=== PATIENT | male | born 1970 | race Caucasian/White ===

== ENCOUNTER 2017-01-11 21:47 | Emergency (ER) | payer BC ==
[~2017-01-11] VITALS: Ht 177.8 cm; Wt 66.0 kg
[2017-01-11 22:52] VITALS: TEMP 37; Ht 177.8 cm; Wt 66.0 kg
[2017-01-11] MEDS ORDERED: SODIUM CHLORIDE 0.9% 1000ML 1,000 ML IV STA (23:57)
[2017-01-11] MEDS ORDERED: ONDANSETRON INJ 2 MG/ML 2 ML VIAL IV STA (23:57)
[2017-01-11] MEDS ORDERED: GI COCKTAIL PO STA (23:57)
[2017-01-12] MEDS ORDERED: FAMOTIDINE 20 MG TAB PO ONE
--- NOTE | 2017-01-12 00:03 | EMERGENCY ROOM VISIT NOTE ---
History Report prepared by Erika: Teja Kaminski Under the Supervision of: Dr. Yony Souza M.D. First contact with patient: 23:32 Chief Complaint: ILLNESS Stated Complaint: JAUNDICE,VALLADARES STOOL,DARK URINE,YELLOW EYES History of Present Illness The patient is a 46 year old white male with a past medical history of dental implants who presents to the ED with a cc of intermittent nausea beginning a couple of days ago. He rates his discomfort as a 2/10 in severity. He reports that starting a week ago he started to experience flu like symptoms including fevers and myalgia. He admits that his fever resolved, but noticed a dark color to his urine three days. The patient also noticed his feces became light yellow colored. He states that he noticed that every time he would eat, he would become nauseous. The patient also reports that he has been experiencing itchiness all over. He reports that he has two-three beers every night. The patient states that he has lost his "taste for drinking" six months ago. He states that he now gets intoxicated off of two beers, which is not normal. Positive chills, dark urine, yellow feces, myalgia. Negative tick exposure, autoimmune disorders, having same symptoms in the past, food exposure, drug use , recent transfusions. Source of History: patient Onset: couple of days ago Position: other (global) Symptom Intensity: 2/10 Timing: intermittent Modifying Factors (Worsening): eating Associated Symptoms: + fevers, + chills Review of Systems See HPI for pertinent positives and negatives. A total of ten systems were reviewed and were otherwise negative. Past Medical & Surgical Surgical Problems: (1) History of dental surgery Family History Patient reports no known family medical history. Social History Smoking Status: Former Smoker Alcohol Use: heavy Marital Status: Housing Status: lives with significant other Occupation Status: employed Current/Historical Medications Scheduled Famotidine (Pepcid), 1 TAB PO DAILY Ondasetron Odt (Zofran Odt), 4 MG SL Q6H Allergies Coded Allergies: No Known Allergies (Unverified , 01/12/17) Physical Exam Vital Signs Date Time Temp Pulse Resp B/P (MAP) Pulse Ox O2 Delivery O2 Flow Rate FiO2 01/12/17 02:30 68 17 101/66 99 01/12/17 01:35 67 18 110/71 96 Room Air 01/11/17 22:52 37.0 73 20 127/93 97 Room Air Physical Exam GENERAL: Awake, alert, well-appearing, NAD HENT: Normocephalic, atraumatic. EYES: Normal conjunctiva. Sclera icteric. NECK: Supple. No nuchal rigidity. FROM. RESPIRATORY: CTAB, no rhonchi, wheezing, crackles CARDIAC: RRR, no MRG ABDOMEN: Soft, NTND, BS+ Negative Obturator's, Psoa's, and Ko's. MSK: No chest wall TTP, no LE edema, No abdominal tenderness. No CVA tenderness. NEURO: GCS 15, CN 2-12 intact, moves all 4s on command SKIN: No rash or jaundice noted. Medical Decision & Procedures ER Provider Diagnostic Interpretation: US RUQ: Slightly dense prominent liver may be fatty, correlate with LFTs. Small gallstones and sludge. Gallbladder wall slightly thickened at 3.7 mm. Unable to assess Ko sign. Indeterminate for cholecystitis. No biliary obstruction. Pancreas unremarkable. Slightly prominent peripancreatic lymph nodes. Study read at 01:18 and initial results transmitted at 01:48 by Karyna Freire M.D. Laboratory Results 01/12/17 00:20 Red Blood Count 4.47, Mean Corpuscular Volume 89.5, Mean Corpuscular Hemoglobin 30.9, Mean Corpuscular Hemoglobin Concent 34.5, Mean Platelet Volume 10.4, Neutrophils (%) (Auto) 53.1, Lymphocytes (%) (Auto) 26.7, Monocytes (%) (Auto) 10.2, Eosinophils (%) (Auto) 9.0, Basophils (%) (Auto) 0.8, Neutrophils # (Auto ) 2.60, Lymphocytes # (Auto) 1.31, Monocytes # (Auto) 0.50, Eosinophils # (Auto ) 0.44, Basophils # (Auto) 0.04 01/12/17 00:20 Test 01/12/17 00:20 White Blood Count 4.90 K/uL (4.8-10.8) Red Blood Count 4.47 M/uL (4.7-6.1) Hemoglobin 13.8 g/dL (14.0-18.0) Hematocrit 40.0 % (42-52) Mean Corpuscular Volume 89.5 fL (80-100) Mean Corpuscular Hemoglobin 30.9 pg (25-34) Mean Corpuscular Hemoglobin Concent 34.5 g/dl (32-36) Platelet Count 189 K/uL (130-400) Mean Platelet Volume 10.4 fL (7.4-10.4) Neutrophils (%) (Auto) 53.1 % Lymphocytes (%) (Auto) 26.7 % Monocytes (%) (Auto) 10.2 % Eosinophils (%) (Auto) 9.0 % Basophils (%) (Auto) 0.8 % Neutrophils # (Auto) 2.60 K/uL (1.4-6.5) Lymphocytes # (Auto) 1.31 K/uL (1.2-3.4) Monocytes # (Auto) 0.50 K/uL (0.11-0.59) Eosinophils # (Auto) 0.44 K/uL (0-0.5) Basophils # (Auto) 0.04 K/uL (0-0.2) RDW Standard Deviation 40.5 fL (36.4-46.3) RDW Coefficient of Variation 12.5 % (11.5-14.5) Immature Granulocyte % (Auto) 0.2 % Immature Granulocyte # (Auto) 0.01 K/uL (0.00-0.02) Prothrombin Time 10.0 SECONDS (9.0-12.0) Prothromb Time International Ratio 0.9 (0.9-1.1) Activated Partial Thromboplast Time 27.9 SECONDS (21.0-31.0) Partial Thromboplastin Ratio 1.1 Anion Gap 7.0 mmol/L (3-11) Est Creatinine Clear Calc Drug Dose 122.2 ml/min Estimated GFR () 131.5 Estimated GFR (Non- 113.5 BUN/Creatinine Ratio 17.9 (10-20) Calcium Level 8.5 mg/dl (8.5-10.1) Total Bilirubin 6.5 mg/dl (0.2-1) Direct Bilirubin 4.9 mg/dl (0-0.2) Aspartate Amino Transf (AST/SGOT) 124 U/L (15-37) Alanine Aminotransferase (ALT/SGPT) 132 U/L (12-78) Alkaline Phosphatase 171 U/L (45-117) Total Protein 7.4 gm/dl (6.4-8.2) Albumin 3.5 gm/dl (3.4-5.0) Lipase 139 U/L (73-393) Laboratory results reviewed by me Medications Administered Medications (Trade) Dose Ordered Sig/Anjali Route Start Time Stop Time Status Last Admin Dose Admin Sodium Chloride 1,000 ml @ 999 mls/hr Q1H1M STAT IV 01/11/17 23:57 01/12/17 00:57 DC 01/12/17 00:25 999 MLS/HR Ondansetron HCl (Zofran Inj) 4 mg NOW STAT IV 01/11/17 23:57 01/12/17 00:01 DC 01/12/17 00:22 4 MG Famotidine (Pepcid Tab) 20 mg NOW ONCE PO 01/12/17 00:00 01/12/17 00:02 DC 01/12/17 00:25 20 MG Al Hydroxide/Mg Hydroxide (Maalox Susp) 30 ml STK-MED ONCE .ROUTE 01/12/17 00:17 01/12/17 00:18 DC 01/12/17 00:22 30 ML Lidocaine HCl (Viscous Lidocaine 2% Soln) 20 ml STK-MED ONCE .ROUTE 01/12/17 00:17 01/12/17 00:18 DC 01/12/17 00:22 20 ML ED Course 2348: The patient was evaluated in room A02. A complete history and physical exam was performed. 0131: I reevaluated the patient and he is resting comfortably. I updated him on his results and treatment plan. He agrees to follow up with outpatient care. Medical Decision The differential diagnosis includes etiologies such as appendicitis, diverticulitis, PUD, biliary pathology, UTI, pancreatitis, obstruction, mesenteric ischemia, aortic pathology, infections, inflammatory bowel disease, renal colic, as well as others were entertained. Patient was seen and evaluated the bedside. Patient was noted to have mild jaundice and scleral icterus. Patient was evaluated with additional blood work and a right upper quadrant ultrasound. Patient's blood work patient had a normal white blood cell count. Patient's coags were within normal limits. Patient did have mild elevations in his LFTs. Patient also detailed elevations in his total bilirubin. Patient was informed of these findings. Patient did have a rather quadrant ultrasound showed possible fatty liver. Patient was noted to have a mild gallbladder wall thickening at 3.7 mm just above the high end of normal. Patient did have small gallstones and sludge and the ultrasound was read as indeterminate for cholecystitis. Patient did not have any focal right upper quadrant tenderness and had a negative Ko sign. Patient was able tolerate by mouth. I did speak with the general surgeon precision instrument maker and repairer who agreed with an outpatient plan of care given the patient's well-appearing nature no dilatation of the CBD patient's negative Ko sign patient's normal white count lack of fever and well-appearing appearance. I explained the results to the patient who agreed with conservative conservative plan of care. Patient was told to continue supportive care and to keep his PCP appointment and he was also referred to gastroenterology but may also obtain an appointment through his PCP. Patient was told to avoid alcohol and Tylenol as this may worsen his liver function. Patient was given strict follow-up, discharge, and return precautions. Patient agreed care was safely discharged home. Medication Reconcilliation Current Medication List: was personally reviewed by me Blood Pressure Screening Patient's blood pressure: Normal blood pressure Impression Primary Impression: Gallstone Additional Impression: Hyperbilirubinemia Scribe Attestation The scribe's documentation has been prepared under my direction and personally reviewed by me in its entirety. I confirm that the note above accurately reflects all work, treatment, procedures, and medical decision making performed by me. Departure Information Dispostion Home / Self-Care Prescriptions Famotidine (PEPCID) 40 Mg Tab 1 TAB PO DAILY for 30 Days, #30 TAB 3 Refills Prov: Yony Souza M.D. 01/12/17 Ondasetron Odt (ZOFRAN ODT) 4 Mg Tab 4 MG SL Q6H for Nausea, #6 TAB Prov: Yony Souza M.D. 01/12/17 Referrals Christian Marx III, M.D. (PCP) Junior Tineo D.O. Patient Instructions Gallstones Dc, My [facility], Total Bilirubin Blood Additional Instructions Please return to the emergency department if you have worsening or recurrent symptoms not amenable to at-home treatment. Please call for a follow-up appointment with her primary care physician. Please take your medications as prescribed. If you have other concerns and/or complaints please feel free to also call your primary care physician's office or return the ED for further evaluation, management, and treatment. Avoid tylenol and alcohol as it may worsen your liver function. Please keep your follow up appointment w/ your PCP and call a powder shoveler for follow up. If you have severe RUQ or are unable to take by mouth medications, food, liquids even with at home treatment, please call your PCP or return to the ER for evaluation. Consider smaller meals and avoid fatty/fried foods. You have been examined and treated today on an emergency basis only. This is not a substitute for, or an effort to provide, complete comprehensive medical care. It is impossible to recognize and treat all injuries or illnesses in a single emergency department visit. It is therefore important that you follow up closely with [facility]. Call as soon as possible for an appointment. Thank you for your time and consideration. I look forward to speaking with you again soon. Please don't hesitate to call us if you have any questions. Problem Qualifiers Primary Impression: Gallstone Cholecystitis presence: without cholecystitis Biliary obstruction: without biliary obstruction Qualified Codes: K80.20 - Calculus of gallbladder without cholecystitis without obstruction
[2017-01-12] MEDS ORDERED: LIDOCAINE HCL 2% VISC SOLN 20 ML UDC ONE (00:17)
[2017-01-12] MEDS ORDERED: ALUMINUM/MAGNESIUM SUSP 30 ML UDC ONE (00:17)
[2017-01-12 00:31] LABS: BASO % 0.8 %; BASO ABS # 0.04 K/uL (0-0.2); COMPLETE YES; IG% 0.2 %; LYMPH % 26.7 %; LYMPH ABS # 1.31 K/uL (1.2-3.4); MEAN CELL VOLUME 89.5 fL (80-100); MEAN CORPUSCULAR HEMOGLOBIN 30.9 pg (25-34); MEAN CORPUSCULAR HGB CONC 34.5 g/dl (32-36); MEAN PLATELET VOLUME 10.4 fL (7.4-10.4); MONO % 10.2 %; NEUT % 53.1 %; PLATELET COUNT 189 K/uL (130-400); RED BLOOD COUNT 4.47 M/uL (4.7-6.1)
[2017-01-12 00:43] LABS: INR 0.9 (0.9-1.1); PARTIAL THROMBOPLASTIN RATIO 1.1
[2017-01-12] MEDS ORDERED: ASPIRIN 324 MG CHEW PO STA (00:46)
[2017-01-12 00:50] LABS: BUN/CREATININE RATIO 17.9 (10-20); CALCIUM 8.5 mg/dl (8.5-10.1); CREATININE 0.72 mg/dl (0.60-1.40); POTASSIUM 3.4 mmol/L (3.5-5.1)
[2017-01-12] MEDS ORDERED: ONDA4TAB10 SL (02:12)
[2017-01-12] MEDS ORDERED: FAMO40TA6 PO (02:12)
[2017-01-12 02:30] VITALS: BP 101/66; PULSE 68; O2SAT 99
--- NOTE | 2017-01-12 06:42 | DIAGNOSTIC IMAGING REPORT ---
ABDOMINAL ULTRASOUND, RIGHT UPPER QUADRANT HISTORY: Jaundice. COMPARISON: None. FINDINGS: Liver morphology is normal. No hepatic lesions are identified in no biliary ductal dilatation. The common bile duct measures 4 mm in caliber. There is sludge and small stones within the gallbladder. Mild gallbladder wall thickening is noted. There was no pericholecystic fluid. Pain medication was given and therefore an accurate sonographic Ko's sign could not be obtained. The pancreatic body was normal. Slightly prominent peripancreatic lymph nodes are noted. None are pathologically enlarged. There is no right hydronephrosis. A 1.1 cm right renal cyst is present. IMPRESSION: 1. No biliary ductal dilatation. Normal liver morphology by sonography. 2. Gallstones and sludge within the gallbladder. Mild gallbladder wall thickening. Sonographic Ko sign could not be assessed for in this patient. Electronically signed by: Hieu Vieira M.D. 01/12/2017 6:41 AM Dictated Date/Time: 01/12/2017 6:38 AM
== END 2017-01-12 02:33 | disposition home or self-care (01) ==
LOC: C.EDB 21:50 → C.EDA 01-12 02:33
DX: K80.20 Calculus of gallbladder without cholecystitis without obstruction (principal); E80.6 Other disorders of bilirubin metabolism; R50.9 Fever, unspecified; M79.1 Myalgia; Z79.899 Other long term (current) drug therapy; Z87.891 Personal history of nicotine dependence

== ENCOUNTER 2017-01-15 09:33 | Inpatient (IN) | payer BC ==
[~2017-01-15] VITALS: Ht 175.3 cm; Wt 65.2 kg
[~2017-01-15 09:33] MED LIST: FAMO40TA6 PO; ONDA4TAB10 SL
[2017-01-15 10:42] LABS: BASO ABS # 0.09 K/uL (0-0.2); COMPLETE YES; HEMATOCRIT 43.8 % (42-52); IG% 0.2 %; LYMPH % 28.9 %; LYMPH ABS # 1.32 K/uL (1.2-3.4); MEAN CELL VOLUME 91.1 fL (80-100); MEAN CORPUSCULAR HEMOGLOBIN 31.8 pg (25-34); MEAN CORPUSCULAR HGB CONC 34.9 g/dl (32-36); MONO % 8.1 %; NEUT % 48.8 %; PLATELET COUNT 269 K/uL (130-400); RED BLOOD COUNT 4.81 M/uL (4.7-6.1); WHITE BLOOD COUNT 4.57 K/uL (4.8-10.8)
[2017-01-15] MEDS ORDERED: OPTIRAY 320 IV PRN (10:45)
[2017-01-15 10:50] LABS: URINE APPEARANCE CLEAR (CLEAR); URINE COLOR DK YELLOW; URINE EPITHELIAL CELL AUTO 0-5 /lpf (0-5); URINE NITRITE POS (NEG); URINE SPECIFIC GRAVITY 1.016 (1.000-1.030); UROBILINOGEN NEG (NEG); ZZUR CULT IF INDIC CLEAN CATCH NO
[2017-01-15 10:52] LABS: MANUAL MICROSCOPIC REQUIRED? NO; REVIEW REQ? NO; URINE BILIRUBIN 3+ (NEG)
[2017-01-15 11:15] LABS: BUN/CREATININE RATIO 10.3 (10-20); CALCIUM 8.8 mg/dl (8.5-10.1); CREATININE 0.67 mg/dl (0.60-1.40); POTASSIUM 3.7 mmol/L (3.5-5.1)
--- NOTE | 2017-01-15 13:04 | DIAGNOSTIC IMAGING REPORT ---
ABD/PELVIS IV AND ORAL CONT CLINICAL HISTORY: 46 years-old Male presenting with Jaundice, worsening. Prior US with gallstones.. TECHNIQUE: Multidetector CT of the abdomen and pelvis was performed after the administration of oral and intravenous contrast. IV contrast: 93 mL of Optiray 320. A dose lowering technique was used consistent with the principles of ALARA (as low as reasonably achievable). COMPARISON: None. CT DOSE (mGy.cm): The estimated cumulative dose is 326.53 mGycm. FINDINGS: Log Deckman topogram: Unremarkable. Lung bases: Lung bases clear. Normal heart size. No pericardial or pleural effusion. Liver: Normal morphology. No liver lesion. Patent hepatic vasculature. Biliary: No intrahepatic or extrahepatic biliary ductal dilatation. Contracted gallbladder. Pancreas: Normal. Spleen: Normal. Adrenal glands: Normal. Kidneys and ureters: Well-defined hypodensity in the right kidney likely simple cyst. No nephrolithiasis. No hydronephrosis. Bladder: Normal. Pelvic organs: Prostate and seminal vesicles normal. Bowel: Normal. No bowel obstruction. Peritoneal cavity: No free fluid or intraperitoneal gas. Vasculature: Aorta and IVC patent and normal in caliber. Lymph nodes: No enlarged lymph nodes in the abdomen or pelvis. Abdominal wall: Normal. Musculoskeletal: Normal. IMPRESSION: 1. No acute intra-abdominal pathology. 2. Contracted gallbladder. No findings to suggest cholecystitis. No biliary ductal dilatation. Electronically signed by: Dominick John M.D. 01/15/2017 1:02 PM Dictated Date/Time: 01/15/2017 12:57 PM
[2017-01-15] MEDS ORDERED: SODIUM CHLORIDE 0.9% 1000ML 1,000 ML IV STA (13:31)
[2017-01-15] MEDS ORDERED: SODIUM CHLORIDE 0.9% 500ML 500 ML IV STA (13:31)
[2017-01-15] MEDS ORDERED: SODIUM CHLORIDE 0.9% 1000ML 1,000 ML IV SCH (14:30)
[2017-01-15] MEDS ORDERED: ONDANSETRON INJ 2 MG/ML 2 ML VIAL IV PRN (14:30)
--- NOTE | 2017-01-15 14:39 | History and Physical ---
History & Physical Date & Time of Service: Jan 15, 2017 at 14:33 Chief Complaint: Jaundice Primary Care Physician: Christian Marx III, M.D. History of Present Illness This is a 46yo M with no PMH who presents with jaundice and malaise x 2 weeks. Patient was in normal state of health until Jan 07, when he started to experience fever, chills, malaise, myalgia. A few days later, patient started to experience itchy skin, nausea and darkened, brown urine. Then noticed that bowel movements were chalk colored and pale. By the , patient noticed jaundice and presented to the ER for further evaluation. Was found to have hyperbilirubinemia, transaminitis and gallstone sludge on RUQ ultrasound, no cholecystitis or ductal dilation. Was advised to eat a low fat diet, abstain from alcohol and tylenol and follow-up with PCP. Saw Dr. Marx at the end of last week for repeat lab work. Malaise, nausea, dark urine and jaundice persisted throughout the weekend, despite patient changing to a low fat diet and abstaining from alcohol. Once patient viewed Epic lab work from PCP and saw that values had not improved, he came to ER for further evaluation. Of note, patient endorses drinking 2-3 beers a day for the last 20 years. Denies binge drinking. Has not consumed any alcohol since last in the ER on . Today, patient endorses feeling fatigued, weak, nauseous, skin continues to itch. Still experiencing brown urine, yellowed stool and jaundice. Denies any lightheadedness, CP, palpitations, SOB, vomiting, abdominal pain, constipation, melena, hematochezia, LE swelling. Past Medical/Surgical History Surgical Problems: (1) History of dental surgery Status: Resolved Family History Patient reports no known family medical history. Social History Smoking Status: Never Smoker Alcohol Use: Endorses 2-3 beers/night. Drug Use: marijuana Marital Status: Occupational Status: employed Allergies Coded Allergies: No Known Allergies (Unverified , 01/15/17) Home Medications No Active Prescriptions or Reported Meds Review of Systems Ten systems reviewed and negative except as noted in the HPI. Physical Exam Vital Signs Date Time Temp Pulse Resp B/P (MAP) Pulse Ox O2 Delivery O2 Flow Rate FiO2 01/15/17 13:25 52 16 124/80 98 Room Air 9/25/17 11:45 50 16 101/79 97 Room Air 01/15/17 09:37 36.8 60 20 124/84 98 Room Air General Appearance: no apparent distress Head: normocephalic, atraumatic Eyes: PERRL, + abnormal sclerae exam (scleral icterus) ENT: hearing grossly normal Neck: supple, no adenopathy, thyroid normal, trachea midline Respiratory/Chest: chest non-tender, lungs clear, normal breath sounds, no respiratory distress, no accessory muscle use Cardiovascular: regular rate, rhythm, no murmur, normal peripheral pulses Abdomen/GI: normal bowel sounds, soft, no organomegaly, + tenderness (Mild TTP of RUQ. Negative Ko's. Not tender otherwise. ) Back: normal inspection Extremities/Musculoskelatal: normal inspection, no calf tenderness, normal capillary refill, no pedal edema Neurologic/Psych: no motor/sensory deficits, alert, normal mood/affect, oriented x 3 Skin: + jaundice Diagnostics Laboratory Results Results Past 24 Hours Test 01/15/17 10:10 01/15/17 14:23 Range/Units White Blood Count 4.57 4.8-10.8 K/uL Red Blood Count 4.81 4.7-6.1 M/uL Hemoglobin 15.3 14.0-18.0 g/dL Hematocrit 43.8 42-52 % Mean Corpuscular Volume 91.1 80-100 fL Mean Corpuscular Hemoglobin 31.8 25-34 pg Mean Corpuscular Hemoglobin Concent 34.9 32-36 g/dl Platelet Count 269 130-400 K/uL Mean Platelet Volume 11.0 7.4-10.4 fL Neutrophils (%) (Auto) 48.8 % Lymphocytes (%) (Auto) 28.9 % Monocytes (%) (Auto) 8.1 % Eosinophils (%) (Auto) 12.0 % Basophils (%) (Auto) 2.0 % Neutrophils # (Auto) 2.23 1.4-6.5 K/uL Lymphocytes # (Auto) 1.32 1.2-3.4 K/uL Monocytes # (Auto) 0.37 0.11-0.59 K/uL Eosinophils # (Auto) 0.55 0-0.5 K/uL Basophils # (Auto) 0.09 0-0.2 K/uL RDW Standard Deviation 42.7 36.4-46.3 fL RDW Coefficient of Variation 12.7 11.5-14.5 % Immature Granulocyte % (Auto) 0.2 % Immature Granulocyte # (Auto) 0.01 0.00-0.02 K/uL Urine Color DK YELLOW Urine Appearance CLEAR CLEAR Urine pH 6.0 4.5-7.5 Urine Specific [place] 1.016 1.000-1.030 Urine Protein NEG NEG Urine Glucose (UA) NEG NEG Urine Ketones NEG NEG Urine Occult Blood NEG NEG Urine Nitrite POS NEG Urine Bilirubin 3+ NEG Urine Urobilinogen NEG NEG Urine Leukocyte Esterase TRACE NEG Urine WBC (Auto) 0 0-5 /hpf Urine RBC (Auto) 0-4 0-4 /hpf Urine Hyaline Casts (Auto) 1-5 0-5 /lpf Urine Epithelial Cells (Auto) 0-5 0-5 /lpf Urine Bacteria (Auto) NEG NEG Sodium Level 140 136-145 mmol/L Potassium Level 3.7 3.5-5.1 mmol/L Chloride Level 106 98-107 mmol/L Carbon Dioxide Level 30 21-32 mmol/L Anion Gap 4.0 3-11 mmol/L Blood Urea Nitrogen 7 7-18 mg/dl Creatinine 0.67 0.60-1.40 mg/dl Est Creatinine Clear Calc Drug Dose 129.8 ml/min Estimated GFR () 135.4 Estimated GFR (Non- 116.9 BUN/Creatinine Ratio 10.3 10-20 Random Glucose 99 70-99 mg/dl Calcium Level 8.8 8.5-10.1 mg/dl Total Bilirubin 7.2 0.2-1 mg/dl Direct Bilirubin 5.3 0-0.2 mg/dl Aspartate Amino Transf (AST/SGOT) 142 15-37 U/L Alanine Aminotransferase (ALT/SGPT) 179 12-78 U/L Alkaline Phosphatase 153 45-117 U/L Total Protein 7.3 6.4-8.2 gm/dl Albumin 3.6 3.4-5.0 gm/dl Lipase 121 73-393 U/L Diagnostic Radiology CT abd/pelvis: IMPRESSION: 1. No acute intra-abdominal pathology. 2. Contracted gallbladder. No findings to suggest cholecystitis. No biliary ductal dilatation. MRCP: IMPRESSION: Negative study. Contracted gallbladder with several gallstones which have has been described previously. Normal MRCP. No evidence for choledocholithiasis Impression Assessment and Plan This is a 46yo M with no PMH who presents with jaundice and malaise x 2 weeks. Patient was in normal state of health until Jan 07, when he started to experience fever, chills, malaise, myalgia. Painless jaundice: -Afebrile, no leukocytosis -Tbili of 7.2, AST of 142, ALT of 179, Alk phos of 153 -RUQ ultrasound from 01/11 showing gallstone sludge -CT abd/pelvis with no acute pathology No findings to suggest cholecystitis No biliary duct dilatation -Results for MRCP: negative for choledocholithiasis -Out-patient acute hepatitis and HIV negative -Per GI recommendations: -Keep NPO for EUS eval tomorrow with potential ERCP -If no CBD stone, may need liver biopsy if LFTs are not improving -Obtain EBV, CMV, Parvo, flu serology, urine tox, APAP level -IVF, CMP in AM DVT Ppx: Quincy valrosa Code status: FULL PCP: Araseli Dispo: Plan to return home once medically stable ATTENDING NOTE : pt seen and examined, in agreement with above H&P by Kylie Champion PA-C labs and images reviewed 46 yo male presented with hx of 2 weeks or malaise , found to have elevated LFT 's -hyperbilirubinemia /elevated direct bilirubin suggestive of obstructive jaundice images ; CT abdomen /USG /MRCP negative for -biliary stone hepatitis panel . lyme titer , serology sent for possible viral vs autoimmune hepatitis GI eval requested for further recommendation Jeanna Kwan MD Level of Care Med/Surg Resuscitation Status FULL RESUSCITATION VTE Prophylaxis VTE Risk Assessment Done? Y/N: Yes Risk Level: Low Given or contraindicated: Karan Ellington Additional Copies To Christian Marx III, M.D.
[2017-01-15 14:40] VITALS: BP 114/91; PULSE 55; TEMP 36.8; O2SAT 97; Ht 175.3 cm; Wt 65.2 kg
[2017-01-15] MEDS ORDERED: PROMETHAZINE HCL INJ 12.5 MG in SODIUM CHLORIDE 0.9% 50ML 50 ML IV PRN (14:45)
--- NOTE | 2017-01-15 15:07 | EMERGENCY ROOM VISIT NOTE ---
History Report prepared by Erika: Estefanía Martinez Under the Supervision of: Dr. Christian Desai M.D. First contact with patient: 09:44 Chief Complaint: OTHER COMPLAINT Stated Complaint: JAUNDICE History of Present Illness The patient is a 46 year old male who presents to the Emergency Room with complaints of persistent jaundiced skin that began four days ago. The patient states that from the 05 of January to the he experienced flu like symptoms. He states that he then became itchy and notes that his skin is irritated.. The patient states that on the 08 of January he noticed a change in his urine and bowel movements, noting that his urine was much darker and his stool was diarrhea in consistency. He states that he additionally began feeling nauseous with eating. The patient states that he was evaluated in the emergency department on January 11 and was instructed to follow up with his PCP. He states that he feels his symptoms are worsening. The patient states that on the his eyes became jaundiced and states that on the his skin became jaundiced. He states that last he stopped eating fatty foods, noting that it had alleviated his diarrhea and additionally notes that he is experiencing less abdominal cramps. The patient states that his appetite is weak. He additionally reports generalized malaise and weakness. The patient denies any active medical problems or previous surgeries. He reports a weakened urinary stream and states that he has had difficulty urinating. The patient reports a weight loss of 10 pounds in the past week. Pt denies LOC, headache, fevers, chills, diaphoresis, visual changes, neck pain , chest pain, breathing difficulties, vomiting, abdominal pain, back pain, melena, hematochezia, urinary symptoms, numbness, lymphadenopathy, rash, or other complaints. Per records from the patient's most recent lab work his AST was 133, Alk-phos was 159, total bilirubin was 7.7, and his ALT was 142. Source of History: patient Onset: four days ago Position: other (skin) Quality: other (jaundiced) Timing: other (persistent) Associated Symptoms: + nausea, + diarrhea, + urinary symptoms, + weakness Note: Associated Symptoms: 10 pound weight loss. Review of Systems See HPI for pertinent positives and negatives. A total of ten systems were reviewed and were otherwise negative. Past Medical & Surgical Medical Problems: (1) Hyperbilirubinemia (2) Jaundice Surgical Problems: (1) History of dental surgery Family History Patient reports no known family medical history. Social History Smoking Status: Never Smoker Alcohol Use: heavy Marital Status: Housing Status: lives with significant other Occupation Status: employed Current/Historical Medications No Active Prescriptions or Reported Meds Allergies Coded Allergies: No Known Allergies (Unverified , 01/15/17) Physical Exam Vital Signs Date Time Temp Pulse Resp B/P (MAP) Pulse Ox O2 Delivery O2 Flow Rate FiO2 01/15/17 15:04 58 18 113/68 98 Room Air 01/15/17 14:40 36.8 55 16 114/91 97 Room Air 01/15/17 13:25 52 16 124/80 98 Room Air 01/15/17 11:45 50 16 101/79 97 Room Air 01/15/17 09:37 36.8 60 20 124/84 98 Room Air Physical Exam GENERAL: Awake, alert, well-appearing, in no distress HENT: Normocephalic, atraumatic. Oropharynx unremarkable. EYES: Normal conjunctiva. Sclera are icteric. NECK: Supple. No nuchal rigidity. FROM. No JVD. RESPIRATORY: Clear to auscultation. CARDIAC: Regular rate, normal rhythm. Extremities warm and well perfused. Pulses equal. ABDOMEN: Soft, non-distended. Slight pain in the right upper quadrant to palpation. No rebound or guarding. No masses. RECTAL: Deferred. MUSCULOSKELETAL: Chest examination reveals no tenderness. The back is symmetrical on inspection without obvious abnormality. There is no CVA tenderness to palpation. No joint edema. LOWER EXTREMITIES: Calves are equal size bilaterally and non-tender. No edema. No discoloration. NEURO: Normal sensorium. No sensory or motor deficits noted. SKIN: Jaundiced noted No rash. Medical Decision & Procedures ER Provider Diagnostic Interpretation: Radiology results as stated below per my review and radiologist interpretation: ABD/PELVIS IV AND ORAL CONT CLINICAL HISTORY: 46 years-old Male presenting with Jaundice, worsening. Prior US with gallstones.. TECHNIQUE: Multidetector CT of the abdomen and pelvis was performed after the administration of oral and intravenous contrast. IV contrast: 93 mL of Optiray 320. A dose lowering technique was used consistent with the principles of ALARA (as low as reasonably achievable). COMPARISON: None. CT DOSE (mGy.cm): The estimated cumulative dose is 326.53 mGycm. FINDINGS: Activities Director Scouting topogram: Unremarkable. Lung bases: Lung bases clear. Normal heart size. No pericardial or pleural effusion. Liver: Normal morphology. No liver lesion. Patent hepatic vasculature. Biliary: No intrahepatic or extrahepatic biliary ductal dilatation. Contracted gallbladder. Pancreas: Normal. Spleen: Normal. Adrenal glands: Normal. Kidneys and ureters: Well-defined hypodensity in the right kidney likely simple cyst. No nephrolithiasis. No hydronephrosis. Bladder: Normal. Pelvic organs: Prostate and seminal vesicles normal. Bowel: Normal. No bowel obstruction. Peritoneal cavity: No free fluid or intraperitoneal gas. Vasculature: Aorta and IVC patent and normal in caliber. Lymph nodes: No enlarged lymph nodes in the abdomen or pelvis. Abdominal wall: Normal. Musculoskeletal: Normal. IMPRESSION: 1. No acute intra-abdominal pathology. 2. Contracted gallbladder. No findings to suggest cholecystitis. No biliary ductal dilatation. Electronically signed by: Dominick John M.D. 01/15/2017 1:02 PM Dictated Date/Time: 01/15/2017 12:57 PM Laboratory Results 01/15/17 10:10 Red Blood Count 4.81, Mean Corpuscular Volume 91.1, Mean Corpuscular Hemoglobin 31.8, Mean Corpuscular Hemoglobin Concent 34.9, Mean Platelet Volume 11.0, Neutrophils (%) (Auto) 48.8, Lymphocytes (%) (Auto) 28.9, Monocytes (%) (Auto) 8.1, Eosinophils (%) (Auto) 12.0, Basophils (%) (Auto) 2.0, Neutrophils # (Auto ) 2.23, Lymphocytes # (Auto) 1.32, Monocytes # (Auto) 0.37, Eosinophils # (Auto ) 0.55, Basophils # (Auto) 0.09 01/15/17 10:10 Test 01/15/17 10:10 01/15/17 14:23 01/15/17 14:35 White Blood Count 4.57 K/uL (4.8-10.8) Red Blood Count 4.81 M/uL (4.7-6.1) Hemoglobin 15.3 g/dL (14.0-18.0) Hematocrit 43.8 % (42-52) Mean Corpuscular Volume 91.1 fL (80-100) Mean Corpuscular Hemoglobin 31.8 pg (25-34) Mean Corpuscular Hemoglobin Concent 34.9 g/dl (32-36) Platelet Count 269 K/uL (130-400) Mean Platelet Volume 11.0 fL (7.4-10.4) Neutrophils (%) (Auto) 48.8 % Lymphocytes (%) (Auto) 28.9 % Monocytes (%) (Auto) 8.1 % Eosinophils (%) (Auto) 12.0 % Basophils (%) (Auto) 2.0 % Neutrophils # (Auto) 2.23 K/uL (1.4-6.5) Lymphocytes # (Auto) 1.32 K/uL (1.2-3.4) Monocytes # (Auto) 0.37 K/uL (0.11-0.59) Eosinophils # (Auto) 0.55 K/uL (0-0.5) Basophils # (Auto) 0.09 K/uL (0-0.2) RDW Standard Deviation 42.7 fL (36.4-46.3) RDW Coefficient of Variation 12.7 % (11.5-14.5) Immature Granulocyte % (Auto) 0.2 % Immature Granulocyte # (Auto) 0.01 K/uL (0.00-0.02) Urine Color DK YELLOW Urine Appearance CLEAR (CLEAR) Urine pH 6.0 (4.5-7.5) Urine Specific [place] 1.016 (1.000-1.030) Urine Protein NEG (NEG) Urine Glucose (UA) NEG (NEG) Urine Ketones NEG (NEG) Urine Occult Blood NEG (NEG) Urine Nitrite POS (NEG) Urine Bilirubin 3+ (NEG) Urine Urobilinogen NEG (NEG) Urine Leukocyte Esterase TRACE (NEG) Urine WBC (Auto) 0 /hpf (0-5) Urine RBC (Auto) 0-4 /hpf (0-4) Urine Hyaline Casts (Auto) 1-5 /lpf (0-5) Urine Epithelial Cells (Auto) 0-5 /lpf (0-5) Urine Bacteria (Auto) NEG (NEG) Anion Gap 4.0 mmol/L (3-11) Est Creatinine Clear Calc Drug Dose 129.8 ml/min Estimated GFR () 135.4 Estimated GFR (Non- 116.9 BUN/Creatinine Ratio 10.3 (10-20) Calcium Level 8.8 mg/dl (8.5-10.1) Total Bilirubin 7.2 mg/dl (0.2-1) Direct Bilirubin 5.3 mg/dl (0-0.2) Aspartate Amino Transf (AST/SGOT) 142 U/L (15-37) Alanine Aminotransferase (ALT/SGPT) 179 U/L (12-78) Alkaline Phosphatase 153 U/L (45-117) Total Protein 7.3 gm/dl (6.4-8.2) Albumin 3.6 gm/dl (3.4-5.0) Lipase 121 U/L (73-393) Laboratory results reviewed by me Medications Administered Medications (Trade) Dose Ordered Sig/Anjali Route Start Time Stop Time Status Last Admin Dose Admin Sodium Chloride 1,000 ml @ 125 mls/hr Q8H STAT IV 01/15/17 13:31 01/15/17 21:30 01/15/17 13:40 125 MLS/HR Sodium Chloride 500 ml @ 999 mls/hr Q31M STAT IV 01/15/17 13:31 01/15/17 14:01 DC 01/15/17 13:40 999 MLS/HR ED Course 0948: The patient was evaluated in room B3B. A complete history and physical exam was performed by the medical student. 1015: The patient was evaluated in room B3B. A complete history and physical exam was performed. 1126: I reevaluated the patient and he is stable. 1327: I discussed the patients case with [facility]. She states that the patient should be worked up as an inpatient 1331: I reevaluated the patient and he is resting comfortably. I discussed all the exam findings with him and I discussed the treatment plan. He verbalized complete understanding and agreement. He is going to be evaluated for further treatment. Ordered Sodium Chloride 500 ml @ 999 mls/hr IV, Sodium Chloride 1000 ml @ 125 mls/hr IV. 1340: I discussed the patients case with Azeb Whittington PA-C. She is going to evaluate the patient for further treatment. Medical Decision Triage Nursing notes reviewed. The patient's presentation and history were concerning for jaundice. Etiologies such as biliary pathology, pancreatitis, malignancy, obstruction, appendicitis, diverticulitis, inflammatory bowel disease, PUD, mesenteric ischemia, infections, genitourinary, UTI, as well as others were entertained. The patient was evaluated. Clinically he was doing well. He is jaundiced. He did have some minimal right upper quadrant tenderness. Blood work was obtained. CT scan was performed. Results as above. The patient has increasing LFTs and is more jaundiced. CT scan did not reveal the obvious pathology. Consultation was made with [facility]. The case was discussed. Admission was recommended for further workup and testing. Consultation was placed with the hospitalist service. The patient was evaluated in the Emergency Room for further management. The patient and were educated. They're very pleased with the treatment. The patient was admitted for further management. Medication Reconcilliation Current Medication List: was personally reviewed by me Blood Pressure Screening Patient's blood pressure: Normal blood pressure Blood pressure disposition: Did not require urgent referral Consults Time Called: 1324 Consulting Physician: Neelam Rodriguez Returned Call: 1327 I discussed the patients case with Neelam Rodriguez. She states that the patient should be worked up as an inpatient Additional Consults: Time Called: 1337 Consulted Physician: Azeb Whittington PA-C Returned Call: [phone] Additional Comments: I discussed the patients case with Azeb Whittington PA-C. She is going to evaluate the patient for further treatment. Impression Primary Impression: Jaundice Additional Impression: Elevated LFTs Scribe Attestation The scribe's documentation has been prepared under my direction and personally reviewed by me in its entirety. I confirm that the note above accurately reflects all work, treatment, procedures, and medical decision making performed by me. Departure Information Dispostion Being Evaluated By Hospitalist Prescriptions No Active Prescriptions or Reported Meds Referrals Christian Marx III, M.D. (PCP) Patient Instructions My [facility] Problem Qualifiers
--- NOTE | 2017-01-15 16:19 | DIAGNOSTIC IMAGING REPORT ---
MRCP CLINICAL HISTORY: obstructive jaundice r/o bile duct stone jaundice TECHNIQUE: MRI multi axial acquisition COMPARISON STUDY: CT abdomen and pelvis same date. Ultrasound same date. FINDINGS: Normal MRCP. No evidence for choledocholithiasis. No biliary or pancreatic ductal distention. Signal characteristics of the liver pancreas and spleen are uniform. Kidneys negative for hydronephrosis. There is a small right renal cyst. No significant adenopathy. Signal characteristics of the osseous structures are unremarkable. Note is again made of a contracted gallbladder with several gallstones. IMPRESSION: Negative study. Contracted gallbladder with several gallstones which have has been described previously. Normal MRCP. No evidence for choledocholithiasis The above report was generated using voice recognition software. It may contain grammatical, syntax or spelling errors. Electronically signed by: Thanh Gomez M.D. 01/15/2017 4:17 PM Dictated Date/Time: 01/15/2017 4:10 PM
[2017-01-15 16:20] VITALS: BP 111/77; PULSE 61; TEMP 36.6; O2SAT 96
[2017-01-15 16:51] LABS: INR 0.9 (0.9-1.1); PROTHROMBIN TIME (PATIENT) 9.8 SECONDS (9.0-12.0)
--- NOTE | 2017-01-15 17:02 | Gastrointestinal Consultation ---
Gastrointestinal Consultation Date of Consultation: Jan 15, 2017 Attending Physician: Jeanna Kwan Consulting Physician: Susan Ramos Reason for Consultation: Painless jaundice History of Present Illness Patient is a 46 year old male w who presented to ED for worsening jaundice. He notice having "flu like symptoms" of malaise mostly about 10 days ago. He had hx of tick bites but not recently, denies any rashes, fever, chills. Does have lots of pets and been outdoors a lot. No recent travels. Then <1 week ago started having indigestion, heartburn feeling post prandially. He cut down on fatty food intake and felt indigestion was better. He has associated pale colored stools and dark urine. He started to notice jaundice 2-3 days ago. Was in fact in ED on 01/11/17. At that time Tbili 6.5, transaminases and AP was in mid 100s. He had gallbladder u/s which showed no biliary dilatation, normal appearing liver. Though has gallstones and sludge. He also had outpt acute hepatitis, HIV testing done which were negative. He returned to ED today for worsening jaundice, itching. Labs showed increased Tbili of 7.7, still similar transaminases and AP in mid to high 100s. CT abd/pelvis today unremarkable, gallbladder contracted. He just had MRCP which showed gallstones but negative study otherwise. He currently denies any abd pain, n/v. He works at the [employer] for [employer]. Denies any significant medical hx, not on any Rx meds or herbal supplements. Drinks 2 beers daily since 22 yrs old, but 1 month ago can only tolerate 1 beer daily. He smokes marijuana 3x a week, denies any illicit drugs, tattoos, piercing, blood transfusions. Denies family hx of liver diseases, GI cancers. Past Medical/Surgical History Medical Problems: (1) Elevated LFTs Status: Acute (2) Gallstone Status: Acute (3) Hyperbilirubinemia Status: Acute Past Medical History: As above. Past Surgical History: Dental repair Family History Patient reports no known family medical history. Social History Smoking Status: Never Smoker Alcohol Use: occasionally (2 beers daily ) Drug Use: marijuana Marital Status: Housing Status: lives with significant other Occupation Status: employed Allergies Coded Allergies: No Known Allergies (Unverified , 01/15/17) Current Medications Home Meds and Scripts Medications Dose Route/Sig Max Daily Dose Days Date Category No Active Prescriptions or Reported Medications Rx Review of Systems Constitutional: + fatigue, No fever, No chills Respiratory: No cough, No shortness of breath Cardiac: No chest pain Abdomen: + acolic stools, + jaundice, + dark urine, No pain, No nausea, No vomiting Endo: + fatigue Skin: + itch, + jaundice, No rash Physical Exam Date Time Temp Pulse Resp B/P (MAP) Pulse Ox O2 Delivery O2 Flow Rate FiO2 01/15/17 16:20 36.6 61 18 111/77 (88) 96 Room Air 01/15/17 16:15 Room Air 01/15/17 15:04 58 18 113/68 98 Room Air 01/15/17 14:40 36.8 55 16 114/91 97 Room Air 01/15/17 13:25 52 16 124/80 98 Room Air 01/15/17 11:45 50 16 101/79 97 Room Air 01/15/17 09:37 36.8 60 20 124/84 98 Room Air General Appearance: WD/WN, no apparent distress Eyes: EOMI, + pertinent finding (icteric sclera) Neck: supple, no JVD, trachea midline Respiratory/Chest: normal breath sounds, no respiratory distress, no accessory muscle use Cardiovascular: regular rate, rhythm, no gallop, no murmur Abdomen: normal bowel sounds, non tender, soft Extremities: normal inspection, no pedal edema, no calf tenderness Neurologic/Psych: alert, normal mood/affect, oriented x 3 Skin: + jaundice Laboratory Results Last 24 Hours Test 01/15/17 10:10 01/15/17 16:34 White Blood Count 4.57 K/uL Red Blood Count 4.81 M/uL Hemoglobin 15.3 g/dL Hematocrit 43.8 % Mean Corpuscular Volume 91.1 fL Mean Corpuscular Hemoglobin 31.8 pg Mean Corpuscular Hemoglobin Concent 34.9 g/dl Platelet Count 269 K/uL Mean Platelet Volume 11.0 fL Neutrophils (%) (Auto) 48.8 % Lymphocytes (%) (Auto) 28.9 % Monocytes (%) (Auto) 8.1 % Eosinophils (%) (Auto) 12.0 % Basophils (%) (Auto) 2.0 % Neutrophils # (Auto) 2.23 K/uL Lymphocytes # (Auto) 1.32 K/uL Monocytes # (Auto) 0.37 K/uL Eosinophils # (Auto) 0.55 K/uL Basophils # (Auto) 0.09 K/uL RDW Standard Deviation 42.7 fL RDW Coefficient of Variation 12.7 % Immature Granulocyte % (Auto) 0.2 % Immature Granulocyte # (Auto) 0.01 K/uL Urine Color DK YELLOW Urine Appearance CLEAR Urine pH 6.0 Urine Specific [place] 1.016 Urine Protein NEG Urine Glucose (UA) NEG Urine Ketones NEG Urine Occult Blood NEG Urine Nitrite POS Urine Bilirubin 3+ Urine Urobilinogen NEG Urine Leukocyte Esterase TRACE Urine WBC (Auto) 0 /hpf Urine RBC (Auto) 0-4 /hpf Urine Hyaline Casts (Auto) 1-5 /lpf Urine Epithelial Cells (Auto) 0-5 /lpf Urine Bacteria (Auto) NEG Sodium Level 140 mmol/L Potassium Level 3.7 mmol/L Chloride Level 106 mmol/L Carbon Dioxide Level 30 mmol/L Anion Gap 4.0 mmol/L Blood Urea Nitrogen 7 mg/dl Creatinine 0.67 mg/dl Est Creatinine Clear Calc Drug Dose 129.8 ml/min Estimated GFR () 135.4 Estimated GFR (Non- 116.9 BUN/Creatinine Ratio 10.3 Random Glucose 99 mg/dl Calcium Level 8.8 mg/dl Total Bilirubin 7.2 mg/dl Direct Bilirubin 5.3 mg/dl Aspartate Amino Transf (AST/SGOT) 142 U/L Alanine Aminotransferase (ALT/SGPT) 179 U/L Alkaline Phosphatase 153 U/L Total Protein 7.3 gm/dl Albumin 3.6 gm/dl Lipase 121 U/L Impression Patient is a 46 year old male here w painless jaundice, pale colored stools, dark urine. Though previously had "flu like symptoms", malaise, and indigestion w fatty food intake. His imaging studies showed gallstones, but no biliary dilation, MRCP negative for CBD obstruction. Outpt acute hepatitis panel and HIV negative. DDx: CBD stones not seen on imaging studies, viral hepatitis, autoimmune liver disease, ? ETOH hepatitis though he admits only 1-2 beers daily. Plan - Keep NPO for EUS eval tomorrow 01/16, w potential ERCP if CBD stone found. If no CBD stone, he may need liver bx if LFTs not improving. - Obtain EBV, CMV, Parvo, Flu serologies. Urine toxicology. APAP level - Monitor LFTs.
[2017-01-15] MEDS: SODIUM CHLORIDE 0.9% 1000ML 1,000 ML IV SCH ×2 (17:49→22:26)
[2017-01-15 22:27] VITALS: BP 99/61; PULSE 54; TEMP 36.8; O2SAT 96
[2017-01-16] MEDS: SODIUM CHLORIDE 0.9% 1000ML 1,000 ML IV SCH ×3 (06:17→23:21)
[2017-01-16 06:52] LABS: HEMATOCRIT 41.2 % (42-52); MEAN CELL VOLUME 92.4 fL (80-100); MEAN CORPUSCULAR HEMOGLOBIN 30.9 pg (25-34); MEAN CORPUSCULAR HGB CONC 33.5 g/dl (32-36); MEAN PLATELET VOLUME 10.5 fL (7.4-10.4); PLATELET COUNT 243 K/uL (130-400); RED BLOOD COUNT 4.46 M/uL (4.7-6.1); WHITE BLOOD COUNT 5.08 K/uL (4.8-10.8)
[2017-01-16 06:58] VITALS: BP 125/77; PULSE 64; TEMP 36.7; O2SAT 98
[2017-01-16] MEDS ORDERED: INDOMETHACIN 50 MG SUPP PR SCH (07:00)
[2017-01-16 07:09] LABS: INR 0.9 (0.9-1.1)
[2017-01-16 07:37] LABS: ALB/GLOB RATIO 0.9 (0.9-2); BUN/CREATININE RATIO 11.4 (10-20); CALCIUM 8.5 mg/dl (8.5-10.1); CREATININE 0.69 mg/dl (0.60-1.40); MAGNESIUM 2.1 mg/dl (1.8-2.4); POTASSIUM 3.5 mmol/L (3.5-5.1)
[2017-01-16 08:02] LABS: LYME DISEASE AB IGM NEG (NEG)
[2017-01-16 08:03] LABS: LYME DISEASE AB IGG NEG (NEG)
[2017-01-16] MEDS: PANTOprazole INJ 40 MG in SYRINGE 0 ML IV SCH (10:36)
--- NOTE | 2017-01-16 10:45 | Progress Note ---
Progress Note Date of Service Jan 16, 2017. (Florinda Langley CRNP) Progress Note Pt is 46 y/o male admitted w painless jaundice, elevated LFTs. Though a couple of weeks prior to admission started w flu like symptoms, indigestion w fatty food intake, then light colored stools, dark urine. No acute events overnight, transaminases trending down, though Tbili increased from 7 to 8. He had been made NPO for EUS/ERCP today. If EUS negative for stones , may need liver bx. Labs, VS reviewed. Exam: AAOx3, in NAD CTA bilateral lung lobes HRR no murmur or gallops Abd soft, non TTP, BS hypoactive No edema on extremities. + jaundice noted. - Keep NPO for EUS/ERCP in OR by Dr. Susan Ramos today, GI will give further recs after procedure completed. (Florinda Langley CRNP) I saw and evaluated the patient. He has presented with a history of malise and liver enzyme elevation. EUS / ERCP requested by Dr. Lamas for further evaluation. PE: Scleral icterus noted\ Abd: soft, mild ruq tenderness Impression: patient with a history of malaise and significant LAE elevation. Further evaluation requested to determine if the etiology may be biliary. If the EUS is negative for CBD stones then EUS guided liver biopy will be offered. we have discussed the risks to include bleeding, infection, perforation, pancreatitis, and insufficient cellularity. Plan EUS (+/- liver biopsy) ERCP if EUS positive for a biliary stricture or stone disease. (Susan Ramos, DO)
[2017-01-16 15:30] VITALS: BP 121/74; PULSE 64; TEMP 36.9; O2SAT 96
--- NOTE | 2017-01-16 16:13 | Progress Note ---
Internal Med Progress Note Date of Service: Jan 16, 2017. Provider Documentation: SUBJECTIVE: Seen and examined at bedside States feeling better today Denies nausea, vomiting, abd pain, itching Planned for EUS and possible ERCP today Denies CP, SOB OBJECTIVE: Vital Signs-as noted below Physical Exam: General Appearance:Moderately built and nourished, no apparent distress Head: normocephalic, Atraumatic Eyes: normal inspection, EOMI, PERRLA, icteric Neck: supple, Trachea midline Respiratory/Chest: Normal breath sounds, CTA Cardiovascular: S1, S2, No murmur Abdomen/GI:Soft, Non tender, Bowel sounds present Extremities/Musculoskelatal:normal inspection, no edema Neurologic/Psych:AAOX3, grossly no focal neurological deficits Skin: normal color, warm Lab data as noted below. ASSESSMENT & PLAN: Patient is a 46yr male with no PMH who presents with jaundice and malaise x 2 weeks. Patient was in normal state of health until Jan 07, when he started to experience fever, chills, malaise, myalgia. Painless jaundice: Admit to drinking 1-2 beers daily Transaminitis RUQ ultrasound from 01/[address] abd/pelvis with no acute pathology MRCP: negative Out-patient acute hepatitis and HIV negative Serological work up, APAP, CMV, Tox screen pending Lyme, Flu negative Planned for EUS and possible ERCP today Appreciate GI help Continue IV fluids for now DVT Px: SCDs Code status: FULL CODE PCP: Araseli Dispo: Plan to return home once medically stable Vital Signs: Date Time Temp Pulse Resp B/P (MAP) Pulse Ox O2 Delivery O2 Flow Rate FiO2 01/16/17 15:30 36.9 64 18 121/74 (90) 96 Room Air 01/16/17 07:40 Room Air 01/16/17 06:58 36.7 64 18 125/77 (93) 98 Room Air 01/15/17 23:15 Room Air 01/15/17 22:27 36.8 54 18 99/61 (74) 96 Room Air Lab Results: Results Past 24 Hours Test 01/15/17 16:34 01/15/17 17:17 01/16/17 06:30 01/16/17 15:30 Range/Units Prothrombin Time 9.8 10.0 9.0-12.0 SECONDS Prothromb Time International Ratio 0.9 0.9 0.9-1.1 Acetaminophen Level 10-30 ug/ml White Blood Count 5.08 4.8-10.8 K/uL Red Blood Count 4.46 4.7-6.1 M/uL Hemoglobin 13.8 14.0-18.0 g/dL Hematocrit 41.2 42-52 % Mean Corpuscular Volume 92.4 80-100 fL Mean Corpuscular Hemoglobin 30.9 25-34 pg Mean Corpuscular Hemoglobin Concent 33.5 32-36 g/dl RDW Standard Deviation 42.9 36.4-46.3 fL RDW Coefficient of Variation 12.7 11.5-14.5 % Platelet Count 243 130-400 K/uL Mean Platelet Volume 10.5 7.4-10.4 fL Sodium Level 140 136-145 mmol/L Potassium Level 3.5 3.5-5.1 mmol/L Chloride Level 106 98-107 mmol/L Carbon Dioxide Level 24 21-32 mmol/L Anion Gap 10.0 3-11 mmol/L Blood Urea Nitrogen 8 7-18 mg/dl Creatinine 0.69 0.60-1.40 mg/dl Est Creatinine Clear Calc Drug Dose 126.0 ml/min Estimated GFR () 133.8 Estimated GFR (Non- 115.5 BUN/Creatinine Ratio 11.4 10-20 Random Glucose 83 70-99 mg/dl Calcium Level 8.5 8.5-10.1 mg/dl Magnesium Level 2.1 1.8-2.4 mg/dl Total Bilirubin 8.2 0.2-1 mg/dl Direct Bilirubin 6.0 0-0.2 mg/dl Aspartate Amino Transf (AST/SGOT) 118 15-37 U/L Alanine Aminotransferase (ALT/SGPT) 146 12-78 U/L Alkaline Phosphatase 138 45-117 U/L Total Protein 6.7 6.4-8.2 gm/dl Albumin 3.1 3.4-5.0 gm/dl Globulin 3.6 2.5-4.0 gm/dl Albumin/Globulin Ratio 0.9 0.9-2 Lyme Disease IgG Antibody NEG NEG Lyme Disease IgM Antibody NEG NEG
[2017-01-16] MEDS ORDERED: ROCURONIUM BROMIDE 10 MG/ML 5 ML VIAL IV ONE (16:45)
[2017-01-16] MEDS ORDERED: DEXAMETHASONE SOD INJ 4 MG/ML VIAL ONE (16:45)
[2017-01-16] MEDS ORDERED: LIDOCAINE HCL 2% 2 ML VIAL (20MG/ML) ONE (16:45)
[2017-01-16] MEDS ORDERED: ATROPINE SULFATE 0.1 MG/ML 5ML SYR IV PRN (16:45)
[2017-01-16] MEDS ORDERED: ONDANSETRON INJ 2 MG/ML 2 ML VIAL ONE (16:45)
[2017-01-16] MEDS ORDERED: EpHEDrine SULFATE INJ 50 MG/ML AMP IV PRN (16:45)
[2017-01-16] MEDS ORDERED: PROMETHAZINE HCL INJ 6.25 MG in SODIUM CHLORIDE 0.9% 50ML 50 ML IV PRN (16:45)
[2017-01-16] MEDS ORDERED: ONDANSETRON INJ 2 MG/ML 2 ML VIAL IV PRN (16:45)
[2017-01-16] MEDS ORDERED: PROPOFOL IV EMULSION 10 MG/ML 20 ML VIAL IV ONE (16:45)
[2017-01-16] MEDS ORDERED: MIDAZOLAM HCL 1 MG/ML 2ML VIAL ONE (16:45)
[2017-01-16] MEDS ORDERED: FENTANYL CITRATE INJ 50 MCG/1 ML 2 ML VIAL ONE (16:45)
[2017-01-16] MEDS ORDERED: NEOSTIGMINE METHYLSULFATE 5 MG/5 ML SYR ONE (17:10)
[2017-01-16] MEDS ORDERED: GLYCOPYRROLATE INJ 0.2 MG/ML VIAL ONE ×2 (17:10→17:22)
--- NOTE | 2017-01-16 17:38 | GI REPORT ---
Procedure Date: 01/16/2017 4:49 PM Procedure: Upper EUS Indications: Epigastric abdominal pain Medicines: General Anesthesia Complications: No immediate complications. Estimated blood loss: Minimal. Estimated Blood Loss: Estimated blood loss was minimal. Procedure: Pre-Anesthesia Assessment: - Prior to the procedure, a History and Physical was performed, and patient medications, allergies and sensitivities were reviewed. The patient's tolerance of previous anesthesia was reviewed. - The risks and benefits of the procedure and the sedation options and risks were discussed with the patient. All questions were answered and informed consent was obtained. - Patient identification and proposed procedure were verified prior to the procedure by the physician, the nurse and the transportation inspector. The procedure was verified in the procedure room. - The risks and benefits of the procedure and the sedation options and risks were discussed with the patient. All questions were answered and informed consent was obtained. - Patient identification and proposed procedure were verified prior to the procedure by the physician, the nurse and the transportation inspector. The procedure was verified in the procedure room. - ASA Grade Assessment: II - A patient with mild systemic disease. - After reviewing the risks and benefits, the patient was deemed in satisfactory condition to undergo the procedure. - The anesthesia plan was to use general anesthesia. - Immediately prior to administration of medications, the patient was re-assessed for adequacy to receive sedatives. - The heart rate, respiratory rate, oxygen saturations, blood pressure, adequacy of pulmonary ventilation, and response to care were monitored throughout the procedure. - The physical status of the patient was re-assessed after the procedure. After obtaining informed consent, the endoscope was passed under direct vision. Throughout the procedure, the patient's blood pressure, pulse, and oxygen saturations were monitored continuously. The upper GI endoscopy was accomplished without difficulty. The patient tolerated the procedure well. After obtaining informed consent, the endoscope was passed under direct vision. Throughout the procedure, the patient's blood pressure, pulse, and oxygen saturations were monitored continuously. The Endosonoscope was introduced through the mouth, and advanced to the second part of duodenum. The Endosonoscope was introduced through the mouth, and advanced to the duodenal bulb. Findings: Endosonographic Finding : There was no sign of significant endosonographic abnormality in the ampulla. No masses and no calcifications were identified. There was no sign of significant endosonographic abnormality in the common bile duct. No stones, no biliary sludge and ducts of normal caliber were identified. The CBD was 4.2 mm. There was no sign of significant endosonographic abnormality in the gallbladder. No stones, no biliary sludge and ducts of normal caliber were identified. The gallbladder wall was 1.7 mm. There was no sign of significant endosonographic abnormality in the entire pancreas. No masses, no cysts, the pancreatic duct was thin in caliber. The PD was 2 mm in the head and 1.1 mm in the body. No lymphadenopathy seen. There was no sign of significant endosonographic abnormality in the left adrenal gland. No adrenal gland enlargement was identified. There was no sign of significant endosonographic abnormality in the left lobe of the liver and in the right lobe of the liver. No focal pathology and no masses were identified. Fine needle biopsy was performed. Color Doppler imaging was utilized prior to needle puncture to confirm a lack of significant vascular structures within the needle path. Three passes were made with the 19 gauge Netformx EchoTip biopsy needle using a transgastric approach (2 passes) and using a transduodenal approach (1 pass). A visible core of tissue was obtained from the both right and left hepatic lobes. Final cytology results are pending. Estimated blood loss was minimal. Impression: - Normal ampulla. - 4 mm common bile duct. - Normal gallbladder. - Normal pancreas. - Endosonographic images of the left adrenal gland were unremarkable. - Normal appearing liver (Biopsies obtained from the left and right heptic lobes). Recommendation: - Return patient to hospital [facility] for ongoing care. - Full liquid diet today. - Await path results. - No aspirin, ibuprofen, naproxen, or other non-steroidal anti-inflammatory drugs for 1 week after biopsy. Susan Ramos D.O. Susan Ramos DO 01/16/2017 5:38:07 PM This report has been signed electronically. Note Initiated On: 01/16/2017 4:49 PM I attest to the content of the Intraoperative Record and orders documented therein, exceptions below
--- NOTE | 2017-01-16 17:39 | GI REPORT ---
Procedure Date: 01/16/2017 4:51 PM Procedure: Upper GI endoscopy Indications: Epigastric abdominal pain Medicines: General Anesthesia Complications: No immediate complications. Estimated blood loss: Minimal. Estimated Blood Loss: Estimated blood loss was minimal. Procedure: Pre-Anesthesia Assessment: - Prior to the procedure, a History and Physical was performed, and patient medications, allergies and sensitivities were reviewed. The patient's tolerance of previous anesthesia was reviewed. - The risks and benefits of the procedure and the sedation options and risks were discussed with the patient. All questions were answered and informed consent was obtained. - Patient identification and proposed procedure were verified prior to the procedure by the physician, the nurse and the knot picker cloth. The procedure was verified in the procedure room. - Pre-procedure physical examination revealed no contraindications to sedation. - ASA Grade Assessment: II - A patient with mild systemic disease. - After reviewing the risks and benefits, the patient was deemed in satisfactory condition to undergo the procedure. - The anesthesia plan was to use general anesthesia. - Immediately prior to administration of medications, the patient was re-assessed for adequacy to receive sedatives. - The heart rate, respiratory rate, oxygen saturations, blood pressure, adequacy of pulmonary ventilation, and response to care were monitored throughout the procedure. - The physical status of the patient was re-assessed after the procedure. After obtaining informed consent, the endoscope was passed under direct vision. Throughout the procedure, the patient's blood pressure, pulse, and oxygen saturations were monitored continuously. The upper EUS was accomplished without difficulty. The patient tolerated the procedure well. After obtaining informed consent, the endoscope was passed under direct vision. Throughout the procedure, the patient's blood pressure, pulse, and oxygen saturations were monitored continuously. The scope was introduced through the mouth, and advanced to the second part of duodenum. Findings: The examined esophagus was normal. The entire examined stomach was normal. The examined duodenum was normal. Impression: - Normal esophagus. - Normal stomach. - Normal examined duodenum. - No specimens collected. Recommendation: - Perform an upper endoscopic ultrasound (UEUS) today. Susan Ramos D.O. Susan Ramos DO 01/16/2017 5:39:35 PM This report has been signed electronically. Note Initiated On: 01/16/2017 4:51 PM I attest to the content of the Intraoperative Record and orders documented therein, exceptions below
--- NOTE | 2017-01-16 17:42 | [facility] Post Operative Brief Note ---
Immediate Operative Summary Operative Date Jan 16, 2017. Pre-Operative Diagnosis Jaundice Post-Operative Diagnosis Jaundice Procedure(s) Performed Liver biopsy; Upper Endoscopic Ultrasonography Surgeon Dr. Susan Ramos Pharm Spec Surgeon(s) Endoscopy staff Estimated Blood Loss none per surgeon Findings Normal common bile duct Normal gallbladder Normal appearing liver Normal upper endoscopy Specimens A) left hepatic lobe B) right hepatic lobe Anesthesia General Complication(s) None Disposition Recovery Room / PACU
[2017-01-16] MEDS: FENTANYL CITRATE INJ 50 MCG/1 ML 2 ML VIAL IV PRN ×2 (18:01→18:08)
--- NOTE | 2017-01-16 18:18 | Anesthesiology Progress Note ---
Anesthesia Post Op Note Date & Time Jan 16, 2017 at 18:18 Vital Signs Vital Signs Past 12 Hours Date Time Temp Pulse Resp B/P (MAP) Pulse Ox O2 Delivery O2 Flow Rate FiO2 01/16/17 18:10 65 16 106/66 99 Room Air 01/16/17 18:00 68 16 105/66 99 Nasal Cannula 10 01/16/17 17:50 67 16 106/66 99 Nasal Cannula 10 01/16/17 17:41 36.4 76 16 115/67 98 Nasal Cannula 10 01/16/17 16:36 36.9 73 16 115/81 (92) 96 Room Air 01/16/17 15:30 36.9 64 18 121/74 (90) 96 Room Air 01/16/17 07:40 Room Air 01/16/17 06:58 36.7 64 18 125/77 (93) 98 Room Air Notes Mental Status: alert / awake / arousable, participated in evaluation Pt Amnestic to Procedure: Yes Nausea / Vomiting: adequately controlled Pain: adequately controlled Airway Patency, RR, SpO2: stable & adequate BP & HR: stable & adequate Hydration State: stable & adequate Anesthetic Complications: no major complications apparent
[2017-01-16 18:45] VITALS: BP 94/58; PULSE 61; TEMP 36.8; O2SAT 94
[2017-01-16 22:46] VITALS: BP 99/64; PULSE 66; TEMP 36.9; O2SAT 95
[2017-01-17 03:37] VITALS: BP 97/61; PULSE 86; TEMP 36.6; O2SAT 95
[2017-01-17] MEDS: SODIUM CHLORIDE 0.9% 1000ML 1,000 ML IV SCH (05:49)
[2017-01-17 06:48] LABS: BUN/CREATININE RATIO 9.7 (10-20); CALCIUM 8.1 mg/dl (8.5-10.1); CREATININE 0.68 mg/dl (0.60-1.40); MAGNESIUM 2.3 mg/dl (1.8-2.4); POTASSIUM 3.7 mmol/L (3.5-5.1)
[2017-01-17 07:10] VITALS: BP 110/72; PULSE 50; TEMP 36.9; O2SAT 97
--- NOTE | 2017-01-17 09:41 | Progress Note ---
Internal Med Progress Note Date of Service: Jan 17, 2017. Provider Documentation: SUBJECTIVE: Seen and examined at bedside Doing well today States malaise resolved, appetite better Denies nausea, vomiting, abd pain, itching Got EUS yesterday Denies CP, SOB Eager to get discharged OBJECTIVE: Vital Signs-as noted below Physical Exam: General Appearance:Moderately built and nourished, no apparent distress Head: normocephalic, Atraumatic Eyes: normal inspection, EOMI, PERRLA, icteric Neck: supple, Trachea midline Respiratory/Chest: Normal breath sounds, CTA Cardiovascular: S1, S2, No murmur Abdomen/GI:Soft, Non tender, Bowel sounds present Extremities/Musculoskelatal:normal inspection, no edema Neurologic/Psych:AAOX3, grossly no focal neurological deficits Skin: normal color, warm Lab data as noted below. ASSESSMENT & PLAN: Patient is a 46yr male with no PMH who presents with jaundice and malaise x 2 weeks. Patient was in normal state of health until Jan 07, when he started to experience fever, chills, malaise, myalgia. Painless jaundice: Could be viral etiology Admit to drinking 1-2 beers daily Transaminitis Total Bilirubin, direct slightly up AST/ALT, Alk phos trending down RUQ ultrasound from 01/[address] abd/pelvis with no acute pathology MRCP: negative EUS: normal Out-patient acute hepatitis and HIV negative Serological work up, APAP, CMV, Tox screen pending Lyme, Flu negative Appreciate GI help Appreciate ID input. Patient declined empiric antibiotics Ehrlichia and Anaplasma titers ordered DVT Px: SCDs Code status: FULL CODE PCP: Araseli Dispo: Plan to return home once medically stable Plan to discharge home today Follow up with on 01/24/17 at 10:45am Get Liver function test (blood work) in 1 week and follow up with or your out of town collection clerk Follow up with your out of town collection clerk as advised Your blood work up is pending. Follow up with results. Seek immediate medical attention if your symptoms reoccur or worsen PROCEDURES: EUS: Impression: - Normal ampulla. - 4 mm common bile duct. - Normal gallbladder. - Normal pancreas. - Endosonographic images of the left adrenal gland were unremarkable. - Normal appearing liver (Biopsies obtained from the left and right heptic lobes). Recommendation: - Return patient to hospital [facility] for ongoing care. - Full liquid diet today. - Await path results. - No aspirin, ibuprofen, naproxen, or other non-steroidal anti-inflammatory drugs for 1 week after biopsy. Vital Signs: Date Time Temp Pulse Resp B/P (MAP) Pulse Ox O2 Delivery O2 Flow Rate FiO2 01/17/17 07:30 Room Air 01/17/17 07:10 36.9 50 18 110/72 (85) 97 Room Air 01/17/17 03:37 36.6 86 16 97/61 (73) 95 Room Air 01/17/17 00:12 Room Air 01/16/17 22:46 36.9 66 16 99/64 (76) 95 Room Air 01/16/17 18:45 36.8 61 16 94/58 (70) 94 Room Air 01/16/17 18:45 94 Room Air 01/16/17 18:45 94 Room Air 01/16/17 18:20 37.3 67 16 101/58 94 Room Air 01/16/17 18:10 65 16 106/66 99 Room Air 01/16/17 18:00 68 16 105/66 99 Nasal Cannula 10 01/16/17 17:50 67 16 106/66 99 Nasal Cannula 10 01/16/17 17:41 36.4 76 16 115/67 98 Nasal Cannula 10 01/16/17 16:36 36.9 73 16 115/81 (92) 96 Room Air 01/16/17 15:30 36.9 64 18 121/74 (90) 96 Room Air Lab Results: Results Past 24 Hours Test 01/16/17 19:40 01/17/17 05:40 01/17/17 12:38 Range/Units Immunoglobulin G 1230.0 700-1600 mg/dL Sodium Level 141 136-145 mmol/L Potassium Level 3.7 3.5-5.1 mmol/L Chloride Level 109 98-107 mmol/L Carbon Dioxide Level 29 21-32 mmol/L Anion Gap 3.0 3-11 mmol/L Blood Urea Nitrogen 7 7-18 mg/dl Creatinine 0.68 0.60-1.40 mg/dl Est Creatinine Clear Calc Drug Dose 127.8 ml/min Estimated GFR () 134.6 Estimated GFR (Non- 116.2 BUN/Creatinine Ratio 9.7 10-20 Random Glucose 125 70-99 mg/dl Calcium Level 8.1 8.5-10.1 mg/dl Magnesium Level 2.3 1.8-2.4 mg/dl Total Bilirubin 8.6 0.2-1 mg/dl Direct Bilirubin 6.5 0-0.2 mg/dl Aspartate Amino Transf (AST/SGOT) 87 15-37 U/L Alanine Aminotransferase (ALT/SGPT) 126 12-78 U/L Alkaline Phosphatase 124 45-117 U/L Total Protein 6.0 6.4-8.2 gm/dl Albumin 2.8 3.4-5.0 gm/dl
--- NOTE | 2017-01-17 10:59 | Anesthesiology Progress Note ---
Anesthesia Post Op Note Date & Time Jan 17, 2017 at 10:58 Vital Signs Pain Intensity: 0.0 Vital Signs Past 12 Hours Date Time Temp Pulse Resp B/P (MAP) Pulse Ox O2 Delivery O2 Flow Rate FiO2 01/17/17 07:30 Room Air 01/17/17 07:10 36.9 50 18 110/72 (85) 97 Room Air 01/17/17 03:37 36.6 86 16 97/61 (73) 95 Room Air 01/17/17 00:12 Room Air Notes Mental Status: alert / awake / arousable Pt Amnestic to Procedure: Yes Nausea / Vomiting: adequately controlled Pain: adequately controlled Airway Patency, RR, SpO2: stable & adequate BP & HR: stable & adequate Hydration State: stable & adequate General anesthesia no complications happy with care.
[2017-01-17] MEDS: PANTOprazole INJ 40 MG in SYRINGE 0 ML IV SCH (11:20)
--- NOTE | 2017-01-17 12:12 | Progress Note ---
Progress Note Date of Service Jan 17, 2017. Progress Note ID Consult Dictated #[id number] A/P: 1. Transaminitis -Will check tick borne serologies, pt declines emperic abx -Viral studies pending -No contraindication to d/c from ID standpoint, see consult for details
--- NOTE | 2017-01-17 12:31 | Gastroenterology Progress Note ---
Progress Note Date of Service: Jan 17, 2017 Subjective Pt evaluation today including: conversation w/ patient, conversation w/ family , physical exam, chart review, lab review, review of inpatient medication list Pt states feeling great, wants to go home. Only c/o mild sore throat after yesterday's endoscopic procedure and some mid epigastric discomfort which is resolving since last night. Tolerating [place] diet well, w/o n/v. LFTs showed Tbili up from 8.2, to 8.6, transaminases declining still. Review of Systems Constitutional: No fever, No chills Respiratory: No cough, No shortness of breath Cardiac: No chest pain Abdomen: No pain, No nausea, No vomiting Skin: + itch, + jaundice Medications Current Inpatient Medications Medications (Trade) Dose Ordered Sig/Anjali Route Start Time Stop Time Status Last Admin Dose Admin Ioversol (Optiray 320) 100 ml UD PRN IV 01/15/17 10:45 01/19/17 10:44 Ondansetron HCl (Zofran Inj) 4 mg Q6H PRN IV 01/15/17 14:30 02/14/17 14:29 Promethazine HCl 12.5 mg/Sodium Chloride 50.5 ml @ 204 mls/hr Q6H PRN IV 01/15/17 14:45 02/14/17 14:44 Diphenhydramine HCl (Benadryl Cap) 25 mg Q6 PRN PO 01/15/17 14:45 02/14/17 14:44 Pantoprazole Sodium 40 mg/ Syringe 10 ml @ 5 mls/min DAILY@11 IV 01/16/17 11:00 02/15/17 10:59 01/17/17 11:20 5 MLS/MIN Objective Vital Signs Date Time Temp Pulse Resp B/P (MAP) Pulse Ox O2 Delivery O2 Flow Rate FiO2 01/17/17 07:30 Room Air 01/17/17 07:10 36.9 50 18 110/72 (85) 97 Room Air 01/17/17 03:37 36.6 86 16 97/61 (73) 95 Room Air 01/17/17 00:12 Room Air 01/16/17 22:46 36.9 66 16 99/64 (76) 95 Room Air 01/16/17 18:45 36.8 61 16 94/58 (70) 94 Room Air 01/16/17 18:45 94 Room Air 01/16/17 18:45 94 Room Air 01/16/17 18:20 37.3 67 16 101/58 94 Room Air 01/16/17 18:10 65 16 106/66 99 Room Air 01/16/17 18:00 68 16 105/66 99 Nasal Cannula 10 01/16/17 17:50 67 16 106/66 99 Nasal Cannula 10 01/16/17 17:41 36.4 76 16 115/67 98 Nasal Cannula 10 01/16/17 16:36 36.9 73 16 115/81 (92) 96 Room Air 01/16/17 15:30 36.9 64 18 121/74 (90) 96 Room Air Physical Exam General Appearance: WD/WN, no apparent distress Eyes: PERRL, EOMI, + pertinent finding (icteric sclera ) Neck: supple, no JVD, trachea midline Respiratory/Chest: normal breath sounds, no respiratory distress, no accessory muscle use Cardiovascular: regular rate, rhythm, no gallop, no murmur Abdomen: normal bowel sounds, non tender, soft Extremities: normal inspection, no pedal edema, no calf tenderness Neurologic/Psych: alert, normal mood/affect, oriented x 3 Skin: warm/dry, no rash, + jaundice Laboratory Results Last 24 Hours Test 01/16/17 19:40 01/17/17 05:40 01/17/17 11:42 Immunoglobulin G 1230.0 mg/dL Sodium Level 141 mmol/L Potassium Level 3.7 mmol/L Chloride Level 109 mmol/L Carbon Dioxide Level 29 mmol/L Anion Gap 3.0 mmol/L Blood Urea Nitrogen 7 mg/dl Creatinine 0.68 mg/dl Est Creatinine Clear Calc Drug Dose 127.8 ml/min Estimated GFR () 134.6 Estimated GFR (Non- 116.2 BUN/Creatinine Ratio 9.7 Random Glucose 125 mg/dl Calcium Level 8.1 mg/dl Magnesium Level 2.3 mg/dl Total Bilirubin 8.6 mg/dl Direct Bilirubin 6.5 mg/dl Aspartate Amino Transf (AST/SGOT) 87 U/L Alanine Aminotransferase (ALT/SGPT) 126 U/L Alkaline Phosphatase 124 U/L Total Protein 6.0 gm/dl Albumin 2.8 gm/dl Assessment and Plan Patient is a 46 year old male here w painless jaundice, pale colored stools, dark urine. Though previously had "flu like symptoms", malaise, and indigestion w fatty food intake. His imaging studies showed gallstones, but no biliary dilation, MRCP negative for CBD obstruction. Outpt acute hepatitis panel and HIV negative. DDx: CBD stones not seen on imaging studies, viral hepatitis, autoimmune liver disease, ? ETOH hepatitis though he admits only 1-2 beers daily. EGD/EUS exams yesterday essentially normal findings, no signs of biliary obstruction. EUS guided liver bx done. LFTs showed improving transaminases but Tbili increased slightly from yesterday. Infectious serologies so far negative for Flu, Hep B, C and Lymes. Plans - Consult ID service - Ok for DC from GI standpoint and will f/u labs, bx results in outpt setting. Will also help set up for f/u GI visit. - Advance diet as tolerated. - Avoid ASA, NSAIDs 1 week after liver bx.
--- NOTE | 2017-01-17 12:38 | INFECT. DISEASE CONSULTATION ---
DATE OF CONSULTATION: 01/17/2017 REQUESTING PHYSICIAN: Dr. Kwan. HISTORY OF PRESENT ILLNESS: This is a 46-year-old gentleman who was admitted to the hospital after he had worsening jaundice. He states that he had flu-like symptoms on or around the through the 10 of January. These resolved spontaneously. He did not seek any medical care at that time. After he resolved his initial flu-like symptoms, he states he noticed some discoloration of his urine and stool and then around the 12 of January noticed yellowing of the skin and the whites of his eyes. He did have outpatient labs done which showed a transaminitis and he was being followed on an outpatient basis. He did have worsening of his laboratory studies and he was eventually recommended to come into the hospital for admission. His bilirubin has been increasing to 8.6. His LFTs however have been improving. His AST was 142 at the time of admission and is 87 today. His ALT was 179 and is 176 today. He did have a CAT scan of the abdomen and pelvis which were negative. He did have hepatitis workup as well as HIV testing as an outpatient and these are negative. He has no history of intravenous drug use. He is and has no sexual partners. His is at the bedside with him and she is feeling fine. He has had no nausea, vomiting, diarrhea, abdominal pain or weight loss. He has never had an elevation of his LFTs before. He did undergo an MRCP during this admission which was negative. He has been afebrile since admission and has been off of antibiotics. Urinalysis was negative. His urine drug screen was negative. Flu swab was negative. Parvo antibody is pending. Lyme and CMV antibodies are pending. A Lyme Western blot has not been done secondary to a negative screen. 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 He did notice a red spot on his neck after his flu-like symptoms but did not notice a tick bite. He is requesting testing for Anaplasma and Ehrlichia, however he is declining empiric treatment with doxycycline as he states he is feeling better. He denies having mono as a child. A mono screen was not done but Vincenzo-Veronica titers are pending. All remaining review of systems are negative. He states he would like to be discharged later today and has changed into his normal clothing. He has no past medical or past surgical history. FAMILY HISTORY: Noncontributory. SOCIAL HISTORY: Negative for tobacco use or illicit intravenous drug use. He occasionally smokes marijuana and does drink occasionally. He denies any known drug allergies. CURRENT MEDICATIONS: Include Protonix, Benadryl, Zofran. PHYSICAL EXAMINATION: VITAL SIGNS: He is afebrile, pulse 50, respiratory rate 18, blood pressure 110/72, oxygen saturation is 97% on room air. GENERAL: He is awake, alert and oriented x3. He is in no acute distress. HEENT: Mucous membranes are moist. Extraocular muscles are intact. Sclerae are icteric. Skin is jaundiced. HEART: Regular. LUNGS: Clear bilaterally. ABDOMEN: Soft, nontender, nondistended. There is no edema. LABORATORY STUDIES: CBC on the reveals a white blood cell count of 5.0, hemoglobin 13.8 and platelets of 243. INR 0.9. Chemistry panel today reveals a sodium of 141, potassium 3.7, chloride 109, bicarb 29, BUN 7, creatinine 0.6. LFTs are reported previously. A lipase was normal. Urinalysis was negative. UDS is pending. Again, Lyme screen is negative. Hepatitis panel is negative. Parvo, Vincenzo-Veronica and CMV are pending. IMAGING: As above. ASSESSMENT AND PLAN: Transaminitis, certainly this could be viral in nature. I have ordered Ehrlichia and Anaplasma titers upon the patient's request; however, he does decline empiric antibiotics. He would like to be discharged home today and we did explain that a lot of these blood tests that are pending will not be back for several days. He states he will follow up with his primary care physician for followup of LFTs as well as results from pending hospital laboratory studies. I do not see any contraindication to discharge with plans to follow up for repeat blood work with his primary care physician.
--- NOTE | 2017-01-17 14:32 | Discharge Summary ---
Discharge Summary Date of Service Jan 17, 2017. Discharge Summary Admission Date: Jan 15, 2017 at 14:19 Discharge Date: Jan 17, 2017 Discharge Disposition: Home Principal Diagnosis: Jaundice, Transaminitis Procedures: CT ABD: 1. No acute intra-abdominal pathology. 2. Contracted gallbladder. No findings to suggest cholecystitis. No biliary ductal dilatation. EUS: Impression: - Normal ampulla. - 4 mm common bile duct. - Normal gallbladder. - Normal pancreas. - Endosonographic images of the left adrenal gland were unremarkable. - Normal appearing liver (Biopsies obtained from the left and right heptic lobes). Recommendation: - Return patient to [facility] for ongoing care. - Full liquid diet today. - Await path results. - No aspirin, ibuprofen, naproxen, or other non-steroidal anti-inflammatory drugs for 1 week after biopsy. MRCP: Negative study. Contracted gallbladder with several gallstones which have has been described previously. Normal MRCP. No evidence for choledocholithiasis Consultations: GI, ID Pending Studies/Follow-Up: Follow up with on 01/24/17 at 10:45am Get Liver function test (blood work) in 1 week and follow up with or your critical care paramedic Follow up with your critical care paramedic as advised Your blood work up is pending. Follow up with results. Seek immediate medical attention if your symptoms reoccur or worsen Medication Reconciliation Medication Profile: No Active Prescriptions or Reported Meds Admission Information HPI (per Admitting provider): This is a 46yo M with no PMH who presents with jaundice and malaise x 2 weeks. Patient was in normal state of health until Jan 07, when he started to experience fever, chills, malaise, myalgia. A few days later, patient started to experience itchy skin, nausea and darkened, brown urine. Then noticed that bowel movements were chalk colored and pale. By the , patient noticed jaundice and presented to the ER for further evaluation. Was found to have hyperbilirubinemia, transaminitis and gallstone sludge on RUQ ultrasound, no cholecystitis or ductal dilation. Was advised to eat a low fat diet, abstain from alcohol and tylenol and follow-up with PCP. Saw Dr. Marx at the end of last week for repeat lab work. Malaise, nausea, dark urine and jaundice persisted throughout the weekend, despite patient changing to a low fat diet and abstaining from alcohol. Once patient viewed Epic lab work from PCP and saw that values had not improved, he came to ER for further evaluation. Of note, patient endorses drinking 2-3 beers a day for the last 20 years. Denies binge drinking. Has not consumed any alcohol since last in the ER on . Today, patient endorses feeling fatigued, weak, nauseous, skin continues to itch. Still experiencing brown urine, yellowed stool and jaundice. Denies any lightheadedness, CP, palpitations, SOB, vomiting, abdominal pain, constipation, melena, hematochezia, LE swelling. Physical Exam (per Admitting): General Appearance: no apparent distress Head: normocephalic, atraumatic Eyes: PERRL, + abnormal sclerae exam (scleral icterus) ENT: hearing grossly normal Neck: supple, no adenopathy, thyroid normal, trachea midline Respiratory/Chest: chest non-tender, lungs clear, normal breath sounds, no respiratory distress, no accessory muscle use Cardiovascular: regular rate, rhythm, no murmur, normal peripheral pulses Abdomen/GI: normal bowel sounds, soft, no organomegaly, + tenderness (Mild TTP of RUQ. Negative Ko's. Not tender otherwise. ) Back: normal inspection Extremities/Musculoskelatal: normal inspection, no calf tenderness, normal capillary refill, no pedal edema Neurologic/Psych: no motor/sensory deficits, alert, normal mood/affect, oriented x 3 Skin: + jaundice Hospital Course Patient is a 46yr male with no PMH who presents with jaundice and malaise x 2 weeks. Patient was in normal state of health until Jan 07, when he started to experience fever, chills, malaise, myalgia. Painless jaundice: Could be viral etiology Admit to drinking 1-2 beers daily Transaminitis Total Bilirubin, direct slightly up AST/ALT, Alk phos trending down RUQ ultrasound from 01/[address] abd/pelvis with no acute pathology MRCP: negative EUS: normal Out-patient acute hepatitis and HIV negative Serological work up, APAP, CMV, Tox screen pending Lyme, Flu negative Appreciate GI help Appreciate ID input. Patient declined empiric antibiotics Ehrlichia and Anaplasma titers ordered DVT Px: SCDs Code status: FULL CODE PCP: [facility] Dispo: Plan to return home once medically stable Plan to discharge home today Follow up with on 01/24/17 at 10:45am Get Liver function test (blood work) in 1 week and follow up with or your critical care paramedic Follow up with your critical care paramedic as advised Your blood work up is pending. Follow up with results. Seek immediate medical attention if your symptoms reoccur or worsen PROCEDURES: EUS: Impression: - Normal ampulla. - 4 mm common bile duct. - Normal gallbladder. - Normal pancreas. - Endosonographic images of the left adrenal gland were unremarkable. - Normal appearing liver (Biopsies obtained from the left and right heptic lobes). Recommendation: - Return patient to [facility] for ongoing care. - Full liquid diet today. - Await path results. - No aspirin, ibuprofen, naproxen, or other non-steroidal anti-inflammatory drugs for 1 week after biopsy. Total time spent on discharge = 32 minutes This includes examination of the patient, discharge planning, medication reconciliation, and communication with other providers. Discharge Instructions Discharge Instructions Date of Service Jan 17, 2017. Admission Reason for Admission: Jaundice,Hyperbilirubinemia Discharge Discharge Diagnosis / Problem: Jaundice, Transaminitis Discharge Goals Goal(s): Decrease discomfort, Improve function Activity Recommendations Activity Limitations: resume your previous activity Exercise/Sports Limitations: as tolerated . Instructions / Follow-Up Instructions / Follow-Up Follow up with on 01/24/17 at 10:45am Get Liver function test (blood work) in 1 week and follow up with or your critical care paramedic Follow up with your critical care paramedic as advised Your blood work up is pending. Follow up with results. Seek immediate medical attention if your symptoms reoccur or worsen Current Hospital Diet Patient's current hospital diet: Full Liquid Diet Discharge Diet Recommended Diet: Regular Diet Procedures Procedures Performed: Liver biopsy; Upper Endoscopic Ultrasonography Pending Studies Studies pending at discharge: yes List of pending studies: Serological work up Medical Emergencies . Who to Call and When: Medical Emergencies: If at any time you feel your situation is an emergency, please call 911 immediately. . Non-Emergent Contact Non-Emergency issues call your: Primary Care Provider, [employer] Engineer Call Non-Emergent contact if: you have a fever, your pain is not controlled, your pain is worsening, your pain is unusual for you, your pain is concerning you, you have any medication questions Seek immediate medical attention if your symptoms reoccur or worsen . . "Provider Documentation" section prepared by Feliciano Deluca. . VTE Core Measure Inpt VTE Proph given/why not?: Karan Ellington
[2017-01-17 14:45] VITALS: BP 110/72; PULSE 50; TEMP 36.9; O2SAT 97
[2017-01-18 16:16] LABS: CARBOXY THC TO CREAT RATIO 850 NG/MG; CARBOXY THC UR GC/MS 850 NG/ML (CUTOFF=5); URCREATININE 95 MG/DL (>/= 20)
[2017-01-19 05:31] LABS: CYTOMEGALOVIRUS IGG AB <0.60 U/ML; PARVOVIRUS IgG INDEX 6.1 (<0.9); PARVOVIRUS IgM INDEX 0.3 (<0.9)
[2017-01-20 13:32] LABS: ANAPLASMA PHAGOCYTOPHIL IGG <1:64 (<1:64); ANAPLASMA PHAGOCYTOPHIL IGM <1:20 (<1:20); EHRLICHIA CHAFF IGG AB <1:64 (<1:64); EHRLICHIA CHAFF IGM AB <1:20 (<1:20)
== END 2017-01-17 14:59 | disposition home or self-care (01) | DRG 443 ==
LOC: C.EDB 09:34 → C.MSW 14:19 → EDBEDREQSVC 14:23 → ENRESERV 14:42
PROVIDERS: ADMIT Hospitalist; ATTEND Internal Medicine
PROC: BF45ZZZ Ultrasonography of Liver (ICD-10-PCS; principal; 2017-01-16 09:00)
PROC: 0DJ08ZZ Inspection of Upper Intestinal Tract, Via Natural or Artificial Opening Endoscopic (ICD-10-PCS; principal; 2017-01-16 09:00)
DX: R17 Unspecified jaundice (principal); R79.89 Other specified abnormal findings of blood chemistry; R74.0 Nonspecific elevation of levels of transaminase and lactic acid dehydrogenase [LDH]